=== PATIENT | female | born 1960 | race Caucasian/White ===

== ENCOUNTER → 2016-12-18 | Outpatient (CLI) | payer BC ==
[~2016-12-18] MED LIST: BACT800T5 PO; IBUP40TA PO; LEVO750T PO; NEUR100C PO; OMEP20CA3 PO; ULTRAVATE TOP; VALT1TAB PO; ZOLO100T PO; ZOVI5CRE5 TOP
[2016-12-18 13:01] LABS: ALBUMIN 4.2 GM/DL (3.2-5.2); ALBUMIN/GLOBULIN RATIO 1.17 (1.00-1.93); ALKALINE PHOSPHATASE 149 U/L (45-117); ALT/SGPT 30 U/L (12-78); ANION GAP 7 MEQ/L (8-16); AST/SGOT 19 U/L (15-37); BILIRUBIN,TOTAL 0.3 MG/DL (0.2-1.0); BLOOD UREA NITROGEN 20 MG/DL (7-18); CALCIUM LEVEL 9.5 MG/DL (8.5-10.1); CARBON DIOXIDE LEVEL 28 MEQ/L (21-32); CHLORIDE LEVEL 101 MEQ/L (98-107); GLOMERULAR FILTRATION RATE > 60.0 (>51); GLUCOSE, FASTING 189 MG/DL (70-105); POTASSIUM SERUM 4.4 MEQ/L (3.5-5.1); SODIUM LEVEL 136 MEQ/L (136-145); TOTAL PROTEIN 7.8 GM/DL (6.4-8.2)
[2016-12-19 14:35] LABS: THYROID PEROXIDASE ANTIBODY < 28.0 U/ML (<60.0)
== END ==
LOC: M WUC 09:41
PROVIDERS: ATTEND Family Medicine
DX: E11.9 Type 2 diabetes mellitus without complications (principal); L50.9 Urticaria, unspecified

== ENCOUNTER → 2016-12-25 | Outpatient (REF) | payer BC ==
[~2016-12-25] MED LIST changes: +CETI10TA; +NITR100C2; +ONDA1TAB15; +PHEN200T14; +RANI150T
== END ==
LOC: M LAB REF 16:27
PROVIDERS: ATTEND Physician Assistant
DX: R10.30 Lower abdominal pain, unspecified (principal)

== ENCOUNTER 2016-12-28 12:40 | Emergency (ER) | payer BC ==
[~2016-12-28] VITALS: Ht 167.6 cm; Wt 103.0 kg
[~2016-12-28 12:40] MED LIST changes: -CETI10TA; -NITR100C2; -ONDA1TAB15; -PHEN200T14; -RANI150T
[2016-12-28] MEDS ORDERED: CETI10TA (12:51)
[2016-12-28] MEDS ORDERED: NITR100C2 (12:51)
[2016-12-28] MEDS ORDERED: PHEN200T14 (12:51)
[2016-12-28] MEDS ORDERED: RANI150T (12:51)
[2016-12-28] MEDS ORDERED: ONDA1TAB15 (12:51)
[2016-12-28 13:37] LABS: MICROSCOPIC INDICATED? MAN YES (NO)
[2016-12-28 13:41] LABS: WBC, URINE 0-1 /hpf (0-3)
[2016-12-28 13:42] LABS: RBC, URINE 0-1 /hpf (0-3)
[2016-12-28 13:43] LABS: SQUAMOUS EPITHELIAL CELL URINE MOD AMOUNT /hpf (SMALL AMT)
[2016-12-28 13:44] LABS: BACTERIA, URINE NONE SEEN; HYALINE CAST, URINE NONE SEEN /lpf (0-1); MICROSCOPIC EXAM PERFORMED
[2016-12-28 14:06] LABS: MEAN CORPUSCULAR HEMOGLOBIN 20.6 pg (27.0-33.0); MEAN CORPUSCULAR HGB CONC 29.6 g/dl (32.0-36.5); MEAN CORPUSCULAR VOLUME 69.5 fl (80.0-96.0); RED CELL DISTRIBUTION WIDTH 16.4 % (11.5-14.5); WHITE BLOOD COUNT 10.9 K/mm3 (4.0-10.0)
[2016-12-28 14:29] LABS: ALBUMIN/GLOBULIN RATIO 0.86 (1.00-1.93); BILIRUBIN,DIRECT 0.3 MG/DL (0.0-0.2); BILIRUBIN,TOTAL 0.8 MG/DL (0.2-1.0); CALCIUM LEVEL 8.4 MG/DL (8.5-10.1); CREATININE FOR GFR 1.04 MG/DL (0.55-1.02); GLOMERULAR FILTRATION RATE 57.9 (>51); POTASSIUM SERUM 4.2 MEQ/L (3.5-5.1); TOTAL PROTEIN 6.5 GM/DL (6.4-8.2)
[2016-12-28] MEDS ORDERED: ACETAMINOPHEN 325 MG TAB PO ONE (14:45)
[2016-12-28 15:23] VITALS: BP 117/60
== END 2016-12-28 15:24 | disposition home or self-care (01) ==
LOC: M ED 14:13
DX: B34.9 Viral infection, unspecified (principal)

== ENCOUNTER → 2017-01-11 | Outpatient (CLI) | payer BC ==
[~2017-01-11] MED LIST changes: +CETI10TA; +NITR100C2; +ONDA1TAB15; +PHEN200T14; +RANI150T
[2017-01-11 13:49] LABS: FOLATE 4.7 NG/ML
[2017-01-11 14:27] LABS: PERCENT SATURATION 4.1 % (13.2-37.4)
== END ==
LOC: M WUC 10:04
PROVIDERS: ATTEND Family Medicine
DX: D64.9 Anemia, unspecified (principal); Z98.84 Bariatric surgery status; R94.5 Abnormal results of liver function studies

== ENCOUNTER → 2017-01-18 | Outpatient (CLI) | payer BC ==
--- NOTE | 2017-01-19 08:16 | REP ---
ABDOMINAL ULTRASOUND, LIMITED: HISTORY: Followup abnormal lesion seen on CT of 07/25/2015. No pertinent prior ultrasounds for comparison. The last ultrasound was done in 2001. The patient is status post cholecystectomy. There is a 3.7 x 2.2 x 1.8 cm size septated predominantly cystic mass lesion seen in the posterior segment of the right lobe of the liver. The cystic component previously measured 2 x 1.[address] back 07/25/2015. There is no intrahepatic or extrahepatic ductal dilatation, the common bile duct measures approximately 4 mm. The imaged portion of the pancreas and right kidney are unremarkable. IMPRESSION: Once again, there is a cystic lesion seen in the liver. It is difficult to compare this ultrasound to the CT. Contrast enhanced CT is recommended for complete evaluation so same modalities can be compared if clinically relevant.
== END ==
LOC: M WHC 13:59
PROVIDERS: ATTEND Family Medicine
DX: K74.60 Unspecified cirrhosis of liver (principal); Q44.6 Cystic disease of liver

== ENCOUNTER → 2017-03-04 | Outpatient (CLI) | payer BC ==
[2017-03-04 14:45] LABS: BASO % 0.4 % (0.0-1.0); EOS # 0.1 K/mm3 (0.0-0.50); LARGE UNSTAINED CELL # 0.1 K/mm3 (0.0-0.4); LYMPH # 0.7 K/mm3 (1.5-4.5); LYMPH % 9.3 % (24.0-44.0); MEAN CORPUSCULAR HEMOGLOBIN 23.8 pg (27.0-33.0); MEAN CORPUSCULAR HGB CONC 31.9 g/dl (32.0-36.5); MEAN CORPUSCULAR VOLUME 74.6 fl (80.0-96.0); MONO # 0.6 K/mm3 (0.0-0.8); MONO % 9.5 % (0.0-5.0); NEUTROPHILS # 4.6 K/mm3 (1.8-7.7); NEUTROPHILS % 77.9 % (36.0-66.0); PLATELET COUNT, AUTOMATED 205 k/mm3 (150-450); WHITE BLOOD COUNT 5.9 K/mm3 (4.0-10.0)
[2017-03-04 18:02] LABS: ALT/SGPT 33 U/L (12-78); AMYLASE 31 U/L (25-115); BILIRUBIN,TOTAL 0.5 MG/DL (0.2-1.0); CALCIUM LEVEL 8.7 MG/DL (8.5-10.1); CHLORIDE LEVEL 101 MEQ/L (98-107)
[2017-03-04 18:30] LABS: ALBUMIN 3.7 GM/DL (3.2-5.2); ALBUMIN/GLOBULIN RATIO 1.09 (1.00-1.93); ALKALINE PHOSPHATASE 229 U/L (45-117); ANION GAP 8 MEQ/L (8-16); AST/SGOT 24 U/L (15-37); BLOOD UREA NITROGEN 16 MG/DL (7-18); CARBON DIOXIDE LEVEL 24 MEQ/L (21-32); CREATININE FOR GFR 0.79 MG/DL (0.55-1.02); GLOMERULAR FILTRATION RATE > 60.0 (>51); GLUCOSE, FASTING 107 MG/DL (70-105); POTASSIUM SERUM 4.4 MEQ/L (3.5-5.1); SODIUM LEVEL 133 MEQ/L (136-145); TOTAL PROTEIN 7.1 GM/DL (6.4-8.2)
[2017-03-05 09:06] LABS: CONTROL LINE MONO INT CTR LINE PRESENT
== END ==
LOC: M WUC 13:02
PROVIDERS: ATTEND Physician Assistant
DX: R50.9 Fever, unspecified (principal)

== ENCOUNTER → 2017-05-07 | Outpatient (CLI) | payer BC ==
[~2017-05-07] MED LIST changes: -ONDA1TAB15; +ONDA4TAB5; +PHEN-501; -PHEN200T14
[2017-05-07 12:59] LABS: ALBUMIN/GLOBULIN RATIO 1.18 (1.00-1.93); ALKALINE PHOSPHATASE 118 U/L (45-117); ALT/SGPT 24 U/L (12-78); ANION GAP 7 MEQ/L (8-16); AST/SGOT 19 U/L (15-37); BASO # 0.1 K/mm3 (0.0-0.2); BASO % 1.5 % (0.0-1.0); BILIRUBIN,TOTAL 0.3 MG/DL (0.2-1.0); BLOOD UREA NITROGEN 19 MG/DL (7-18); CALCIUM LEVEL 9.5 MG/DL (8.5-10.1); CARBON DIOXIDE LEVEL 29 MEQ/L (21-32); CHLORIDE LEVEL 106 MEQ/L (98-107); CHOLESTEROL LEVEL 229 MG/DL (<200); CREATININE FOR GFR 0.78 MG/DL (0.55-1.02); EOS # 0.2 K/mm3 (0.0-0.50); EOS % 4.5 % (0.0-3.0); FERRITIN 14 NG/ML (8-252); GLOMERULAR FILTRATION RATE > 60.0 (>51); GLUCOSE, FASTING 103 MG/DL (70-105); LARGE UNSTAINED CELL # 0.1 K/mm3 (0.0-0.4); LARGE UNSTAINED CELL % 1.9 % (0.0-4.0); LYMPH # 1.6 K/mm3 (1.5-4.5); MEAN CORPUSCULAR HEMOGLOBIN 25.4 pg (27.0-33.0); MEAN CORPUSCULAR HGB CONC 31.6 g/dl (32.0-36.5); MEAN CORPUSCULAR VOLUME 80.3 fl (80.0-96.0); MONO # 0.4 K/mm3 (0.0-0.8); NEUTROPHILS # 3.1 K/mm3 (1.8-7.7); NEUTROPHILS % 57.2 % (36.0-66.0); PLATELET COUNT, AUTOMATED 235 k/mm3 (150-450); RED CELL DISTRIBUTION WIDTH 17.4 % (11.5-14.5); SODIUM LEVEL 142 MEQ/L (136-145); TOTAL PROTEIN 7.4 GM/DL (6.4-8.2); TRIGLYCERIDES LEVEL 131 MG/DL (<150); WHITE BLOOD COUNT 5.4 K/mm3 (4.0-10.0)
[2017-05-07 15:15] LABS: VITAMIN B12 LEVEL 251 PG/ML (247-911)
== END ==
LOC: M WUC 09:33
PROVIDERS: ATTEND Family Medicine
DX: E11.65 Type 2 diabetes mellitus with hyperglycemia (principal); D50.9 Iron deficiency anemia, unspecified; E53.9 Vitamin B deficiency, unspecified

== ENCOUNTER → 2017-05-23 | Outpatient (CLI) | payer BC ==
[2017-05-23 13:30] LABS: ALBUMIN/GLOBULIN RATIO 1.21 (1.00-1.93); ALKALINE PHOSPHATASE 120 U/L (45-117); ALT/SGPT 26 U/L (12-78); ANION GAP 8 MEQ/L (8-16); AST/SGOT 20 U/L (15-37); BILIRUBIN,TOTAL 0.3 MG/DL (0.2-1.0); BLOOD UREA NITROGEN 16 MG/DL (7-18); CALCIUM LEVEL 8.9 MG/DL (8.5-10.1); CARBON DIOXIDE LEVEL 27 MEQ/L (21-32); CHLORIDE LEVEL 108 MEQ/L (98-107); CREATININE FOR GFR 0.75 MG/DL (0.55-1.02); GLOMERULAR FILTRATION RATE > 60.0 (>51); GLUCOSE, FASTING 90 MG/DL (70-105); POTASSIUM SERUM 4.7 MEQ/L (3.5-5.1); SODIUM LEVEL 143 MEQ/L (136-145); TOTAL PROTEIN 7.3 GM/DL (6.4-8.2)
[2017-05-24 10:08] LABS: CARCINOEMBRYONIC ANTIGEN 0.5 NG/ML (<2.5)
== END ==
LOC: M WUC 09:51
PROVIDERS: ATTEND Family Medicine
DX: R94.5 Abnormal results of liver function studies (principal)

== ENCOUNTER → 2017-06-04 | Outpatient (CLI) | payer BC ==
[~2017-06-04] MED LIST changes: +ISOVUE-370 76% 100ML VIAL (Q9967) As Ordered ONE
--- NOTE | 2017-06-04 09:13 | REP ---
CT abdomen and pelvis without and with IV contrast: Without oral contrast. History: Abnormal liver function studies. 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 The gallbladder and appendix are surgically absent as well by history. CT contrast dose: 100 ml of intravenous Isovue 370. Comparison CT studies are reviewed, dated December 30, 2016 and July 25, 2015. Technique: Precontrast and dual-phase postcontrast imaging is acquired. CT findings: Preliminary digital cardiology coordinator radiograph demonstrates a unremarkable bowel gas pattern. The lung bases are clear. There is a sliding type hiatal hernia noted. The patient is status post gastric bypass surgery with associated anastomotic suture lines in the left mid abdomen and at the gastroesophageal junction. No adrenal lesion is seen. The pancreas remains unremarkable. The gallbladder is surgically absent. No biliary ductal dilation is observed. Kidneys are unremarkable. Some postoperative irregularity is seen in the posterior surface of the right lobe of the liver. In this region, we again see a 2.3 x 2.6 x 1.9 cm low density area consistent with a cystic liver lesion. This does not appear to have changed in the interval since the July 25, 2015 study. There is a calcification along the periphery of this cyst and a bile duct is seen coursing through the liver to the cyst as before. No new liver lesion or cyst is seen. Spleen is unremarkable. No retroperitoneal mass or adenopathy is seen. Small and large intestinal bowel loops are unremarkable. The urinary bladder appears intact although it is empty at the time of scanning. No bony destructive lesion is seen. The delayed acquisition scans extend up a little higher than the remainder the study and on the uppermost cut of this acquisition is a 3.5 cm nodular density in the right breast. I see that the patient's last mammogram in the electronic x-ray jacket is from 2014. Diagnostic bilateral mammography is recommended. Impression: 1. Stable 2.6 cm low density cystic area again seen at the previous partial hepatectomy resection site. This has not changed in the interval since the 2014 prior study. 2. Incidental finding of a nodular density in the right breast on the uppermost cut in the CT acquisition. Recommend diagnostic bilateral mammography. 3. Postoperative changes in the abdomen and pelvis as before with a small hiatal hernia again noted. Signed by Jus Roman MD 06/04/2017 03:48 P
== END ==
LOC: M RAD 07:47
PROVIDERS: ATTEND Family Medicine
DX: D37.6 Neoplasm of uncertain behavior of liver, gallbladder and bile ducts (principal); R94.5 Abnormal results of liver function studies
CPT/HCPCS: 74178; Q9967

== ENCOUNTER → 2017-12-06 | Outpatient (REF) | payer BC | LOC: M LAB REF 11:56 | DX: R30.0 Dysuria (principal) | CPT/HCPCS: 87086 ==

== ENCOUNTER → 2017-12-09 | Outpatient (CLI) | payer BC ==
[2017-12-09 17:45] LABS: ALBUMIN 3.1 GM/DL (3.2-5.2); ALBUMIN/GLOBULIN RATIO 0.78 (1.00-1.93); ALKALINE PHOSPHATASE 397 U/L (45-117); ALT/SGPT 25 U/L (12-78); ANION GAP 8 MEQ/L (8-16); AST/SGOT 19 U/L (7-37); BILIRUBIN,TOTAL 0.4 MG/DL (0.2-1.0); BLOOD UREA NITROGEN 11 MG/DL (7-18); CALCIUM LEVEL 9.6 MG/DL (8.5-10.1); CARBON DIOXIDE LEVEL 25 MEQ/L (21-32); CHLORIDE LEVEL 103 MEQ/L (98-107); CREATININE FOR GFR 0.79 MG/DL (0.55-1.30); GLOMERULAR FILTRATION RATE > 60.0 (>51); GLUCOSE, FASTING 289 MG/DL (70-100); SODIUM LEVEL 136 MEQ/L (136-145); TOTAL PROTEIN 7.1 GM/DL (6.4-8.2)
[2017-12-09 17:52] LABS: BASO % 0.5 % (0.0-1.0); EOS # 0.1 10^3/uL (0.0-0.50); EOS % 1.6 % (0.0-3.0); HEMATOCRIT 40.2 % (36.0-47.0); HEMOGLOBIN 12.5 g/dl (12.0-16.0); LYMPH # 1.2 10^3/uL (1.5-4.5); MEAN CORPUSCULAR HGB CONC 31.1 g/dl (32.0-36.5); MEAN CORPUSCULAR VOLUME 89.9 fl (80.0-96.0); MONO # 0.4 10^3/uL (0.0-0.8); MONO % 4.6 % (0.0-5.0); NEUTROPHILS # 6.5 10^3/uL (1.8-7.7); NEUTROPHILS % 78.3 % (36.0-66.0); PLATELET COUNT, AUTOMATED 663 10^3/uL (150-450); RED BLOOD COUNT 4.47 10^6/uL (4.00-5.40); RED CELL DISTRIBUTION WIDTH 13.6 % (11.5-14.5); WHITE BLOOD COUNT 8.3 10^3/uL (4.0-10.0)
[2017-12-09 18:12] LABS: CONTROL LINE MONO INT CTR LINE PRESENT; MONO SCRN NEGATIVE (NEGATIVE)
== END ==
LOC: M WUC 13:28
DX: R10.11 Right upper quadrant pain (principal)
CPT/HCPCS: 80053

== ENCOUNTER → 2017-12-09 | Outpatient (CLI) | payer BC | LOC: M WHC 11:05 | DX: R10.11 Right upper quadrant pain (principal) | CPT/HCPCS: 76705 ==

== ENCOUNTER → 2017-12-09 | Outpatient (REF) | payer BC | LOC: M LAB REF 13:24 | DX: N39.0 Urinary tract infection, site not specified (principal) | CPT/HCPCS: 87086 ==

== ENCOUNTER → 2018-05-27 | Outpatient (CLI) | payer BC | LOC: M WHC 09:02 | DX: Z12.31 Encounter for screening mammogram for malignant neoplasm of breast (principal); Z78.0 Asymptomatic menopausal state; Z92.89 Personal history of other medical treatment | CPT/HCPCS: 77067 ==

== ENCOUNTER → 2018-07-09 | Outpatient (REF) | payer BC | LOC: M LAB REF 13:13 | DX: R30.0 Dysuria (principal) ==

== ENCOUNTER → 2018-11-15 | Outpatient (CLI) | payer BC ==
[~2018-11-15] MED LIST changes: -ISOVUE-370 76% 100ML VIAL (Q9967) As Ordered ONE
[2018-11-15 18:10] LABS: BASO # 0.1 10^3/uL (0.0-0.2); BASO % 1.7 % (0.0-1.0); EOS # 0.3 10^3/uL (0.0-0.50); EOS % 5.4 % (0.0-3.0); HEMATOCRIT 45.7 % (36.0-47.0); HEMOGLOBIN 14.7 g/dl (12.0-15.5); LYMPH # 1.4 10^3/uL (1.5-4.5); LYMPH % 26.8 % (24.0-44.0); MEAN CORPUSCULAR HEMOGLOBIN 28.3 pg (27.0-33.0); MEAN CORPUSCULAR HGB CONC 32.2 g/dl (32.0-36.5); MEAN CORPUSCULAR VOLUME 87.9 fl (80.0-96.0); MONO # 0.4 10^3/uL (0.0-0.8); MONO % 6.8 % (0.0-5.0); NEUTROPHILS # 3.1 10^3/uL (1.8-7.7); NEUTROPHILS % 58.9 % (36.0-66.0); PLATELET COUNT, AUTOMATED 242 10^3/uL (150-450); WHITE BLOOD COUNT 5.2 10^3/uL (4.0-10.0)
[2018-11-15 18:13] LABS: ALBUMIN 3.8 GM/DL (3.2-5.2); ALT/SGPT 22 U/L (12-78); BILIRUBIN,TOTAL 0.5 MG/DL (0.2-1.0); BLOOD UREA NITROGEN 13 MG/DL (7-18); CALCIUM LEVEL 8.4 MG/DL (8.8-10.2); CARBON DIOXIDE LEVEL 28 MEQ/L (21-32); CHLORIDE LEVEL 105 MEQ/L (98-107); CHOLESTEROL LEVEL 248 MG/DL (<200); CHOLESTEROL RISK RATIO 5.636 (<5); FERRITIN 36 NG/ML (8-252); GLOMERULAR FILTRATION RATE > 60.0 (>45); GLUCOSE, FASTING 113 MG/DL (70-100); HDL CHOLESTEROL 44 MG/DL (>40); IRON (FE) 97 UG/DL (50-170); LDL CHOLESTEROL 172 MG/DL (<100); NON-HDL-C 204 MG/DL; PERCENT SATURATION 27.2 % (13.2-45.0); POTASSIUM SERUM 4.4 MEQ/L (3.5-5.1); SODIUM LEVEL 140 MEQ/L (136-145); TOTAL IRON BINDING CAPACITY 356 UG/DL (250-450); TOTAL PROTEIN 7.2 GM/DL (6.4-8.2); TRIGLYCERIDES LEVEL 161 MG/DL (<150)
[2018-11-15 18:35] LABS: MALB URINE SIEMENS 8.3 MG/L; MAU/CREAT RATIO 6.7 MCG/MG (0.0-30.0)
[2018-11-15 18:37] LABS: HEMOGLOBIN A1c 6.4 %
[2018-11-17 10:51] LABS: VITAMIN B12 LEVEL 272 PG/ML (247-911)
== END ==
LOC: M WUC 11:38
PROVIDERS: ATTEND Family Medicine
DX: E11.65 Type 2 diabetes mellitus with hyperglycemia (principal); D50.9 Iron deficiency anemia, unspecified; E53.9 Vitamin B deficiency, unspecified

== ENCOUNTER 2018-12-25 08:31 | Day surgery (SDC) | payer BC ==
[~2018-12-25] VITALS: Ht 170.2 cm; Wt 110.2 kg
[~2018-12-25 08:31] MED LIST changes: +ASPI81TA26 PO; -CETI10TA; +CETI10TA PO; +FERR325T3 PO; +HYDR-3363 PO; +IBUP-1114 PO; -IBUP40TA PO; +LIDOCAINE 2% INJ 100 MG/5 ML SDV (FOR ANES.) As Ordered ONE; +METF10004 PO; +NS 1,000 ML IV ONE; +PROPOFOL 200 MG/20 ML VIAL As Ordered ONE; +RANI150T PO; +VITA100067 PO
--- NOTE | 2018-12-25 09:39 | ROOR ---
Patient Name: Christin Mondragon Procedure Date: 12/25/2018 9:05 AM Date of : 1960 Age: 58 Room: [facility] Gender: Female Note Status: Finalized Procedure: Upper GI endoscopy Indications: Suspected esophageal reflux Providers: Domenic Lee Jr, MD Referring MD: Kasey BURKETT DO Requesting Provider: Medicines: Propofol per Anesthesia Complications: No immediate complications. Procedure: Pre-Anesthesia Assessment: - Prior to the procedure, a History and Physical was performed, and patient medications and allergies were reviewed. The patient is competent. The risks and benefits of the procedure and the sedation options and risks were discussed with the patient. All questions were answered and informed consent was obtained. Patient identification and proposed procedure were verified by the physician and the nurse in the pre-procedure area and in the procedure room. Mental Status Examination: alert and oriented. Airway Examination: normal oropharyngeal airway and neck mobility. Respiratory Examination: clear to auscultation. CV Examination: normal. ASA Grade Assessment: II - A patient with mild systemic disease. After reviewing the risks and benefits, the patient was deemed in satisfactory condition to undergo the procedure. The anesthesia plan was to use moderate sedation / analgesia (conscious sedation). Immediately prior to administration of medications, the patient was re-assessed for adequacy to receive sedatives. The heart rate, respiratory rate, oxygen saturations, blood pressure, adequacy of pulmonary ventilation, and response to care were monitored throughout the procedure. The physical status of the patient was re-assessed after the procedure. The Endoscope was introduced through the mouth, and advanced to the afferent jejunal loop. The upper GI endoscopy was accomplished without difficulty. The patient tolerated the procedure well. Findings: A small hiatal hernia was present. Evidence of a gastric bypass was found. A gastric pouch with a normal size was found. The gastrojejunal anastomosis was characterized by erythema. Biopsies were taken with a cold forceps for histology. The examined jejunum was normal. Impression: - Small hiatal hernia. - Gastric bypass with a normal-sized pouch. Gastrojejunal anastomosis characterized by erythema. Biopsied. - Normal examined jejunum. BUT THE BLIND LOOP WAS VERY LONG (CANDY CANE) Recommendation: - Discharge patient to home (ambulatory). - Return to Bariatric clinic at appointment to be scheduled. Domenic Lee MD Domenic Lee Jr, MD 12/25/2018 9:39:46 AM Electronically signed by Domenic Lee Jr, MD Number of Addenda: 0 Note Initiated On: 12/25/2018 9:05 AM Estimated Blood Loss: Estimated blood loss was minimal.
--- NOTE | 2018-12-25 09:42 | ROOR ---
Patient Name: Christin Mondragon Procedure Date: 12/25/2018 9:06 AM Date of : 1960 Age: 58 Room: [facility] Gender: Female Note Status: Finalized Procedure: Colonoscopy Indications: High risk colon cancer surveillance: Personal history of colonic polyps Providers: Domenic Lee Jr, MD Referring MD: Kasey BURKETT DO Requesting Provider: Medicines: Propofol per Anesthesia Complications: No immediate complications. Procedure: Pre-Anesthesia Assessment: - Prior to the procedure, a History and Physical was performed, and patient medications and allergies were reviewed. The patient is competent. The risks and benefits of the procedure and the sedation options and risks were discussed with the patient. All questions were answered and informed consent was obtained. Patient identification and proposed procedure were verified by the physician and the nurse in the pre-procedure area and in the procedure room. Mental Status Examination: alert and oriented. Airway Examination: normal oropharyngeal airway and neck mobility. Respiratory Examination: clear to auscultation. CV Examination: normal. ASA Grade Assessment: II - A patient with mild systemic disease. After reviewing the risks and benefits, the patient was deemed in satisfactory condition to undergo the procedure. The anesthesia plan was to use moderate sedation / analgesia (conscious sedation). Immediately prior to administration of medications, the patient was re-assessed for adequacy to receive sedatives. The heart rate, respiratory rate, oxygen saturations, blood pressure, adequacy of pulmonary ventilation, and response to care were monitored throughout the procedure. The physical status of the patient was re-assessed after the procedure. The Colonoscope was introduced through the anus and advanced to the cecum, identified by appendiceal orifice and ileocecal valve. The colonoscopy was performed without difficulty. The patient tolerated the procedure well. The quality of the bowel preparation was adequate. Findings: The sigmoid colon, descending colon, transverse colon, ascending colon, cecum, appendiceal orifice and ileocecal valve appeared normal. A diminutive polyp was found in the recto-sigmoid colon. The polyp was removed with a hot snare. Resection and retrieval were complete. A small polyp was found in the rectum. The polyp was pedunculated. The polyp was removed with a hot snare. Resection and retrieval were complete. Impression: - The sigmoid colon, descending colon, transverse colon, ascending colon, cecum, appendiceal orifice and ileocecal valve are normal. - One diminutive polyp at the recto-sigmoid colon, removed with a hot snare. Resected and retrieved. - One small polyp in the rectum, removed with a hot snare. Resected and retrieved. Recommendation: - Discharge patient to home (ambulatory). - Repeat colonoscopy in 5 years for surveillance. Domenic Lee MD Domenic Lee Jr, MD 12/25/2018 9:41:57 AM Electronically signed by Domenic Lee Jr, MD Number of Addenda: 0 Note Initiated On: 12/25/2018 9:06 AM Estimated Blood Loss: Estimated blood loss: none.
[2018-12-25 10:09] VITALS: BP 123/69
== END 2018-12-25 10:10 | disposition home or self-care (01) ==
LOC: M OPP 08:31
PROVIDERS: ATTEND Surgery
DX: D12.7 Benign neoplasm of rectosigmoid junction (principal); K62.1 Rectal polyp; K44.9 Diaphragmatic hernia without obstruction or gangrene; Z86.010 Personal history of colon polyps; Z98.84 Bariatric surgery status

== ENCOUNTER → 2019-04-05 | Outpatient (REF) | payer BC ==
[~2019-04-05] MED LIST changes: -LIDOCAINE 2% INJ 100 MG/5 ML SDV (FOR ANES.) As Ordered ONE; -NS 1,000 ML IV ONE; +OMEP20CA4 PO; -PROPOFOL 200 MG/20 ML VIAL As Ordered ONE
== END ==
LOC: M LAB REF 09:59
PROVIDERS: ATTEND Physician Assistant
DX: N39.0 Urinary tract infection, site not specified (principal)

== ENCOUNTER → 2019-06-05 | Outpatient (REF) | payer BC | LOC: M LAB REF 16:58 | PROVIDERS: ATTEND Physician Assistant | DX: R30.0 Dysuria (principal) ==

== ENCOUNTER → 2019-11-23 | Outpatient (CLI) | payer BC ==
[~2019-11-23] MED LIST changes: +OMEP1CAP73 PO; -OMEP20CA4 PO; +ONDA-83; -ONDA4TAB5
[2019-11-23 11:37] LABS: BASO # 0.1 10^3/uL (0.0-0.2); BASO % 1.8 % (0.0-1.0); EOS # 0.3 10^3/uL (0.0-0.5); EOS % 5.7 % (0.0-3.0); HEMATOCRIT 45.2 % (36.0-47.0); HEMOGLOBIN 14.5 g/dl (12.0-15.5); LYMPH # 1.5 10^3/uL (1.5-5.0); LYMPH % 30.9 % (24.0-44.0); MEAN CORPUSCULAR HEMOGLOBIN 28.4 pg (27.0-33.0); MEAN CORPUSCULAR HGB CONC 32.1 g/dl (32.0-36.5); MEAN CORPUSCULAR VOLUME 88.6 fl (80.0-96.0); MONO # 0.4 10^3/uL (0.0-0.8); MONO % 8.4 % (0.0-5.0); NEUTROPHILS # 2.6 10^3/uL (1.5-8.5); PLATELET COUNT, AUTOMATED 235 10^3/uL (150-450); WHITE BLOOD COUNT 4.9 10^3/uL (4.0-10.0)
[2019-11-23 11:40] LABS: ALBUMIN 4.1 GM/DL (3.2-5.2); ALT/SGPT 28 U/L (12-78); BILIRUBIN,TOTAL 0.4 MG/DL (0.2-1.0); BLOOD UREA NITROGEN 12 MG/DL (7-18); CALCIUM LEVEL 9.4 MG/DL (8.8-10.2); CARBON DIOXIDE LEVEL 28 MEQ/L (21-32); CHLORIDE LEVEL 109 MEQ/L (98-107); CHOLESTEROL LEVEL 241 MG/DL (<200); CHOLESTEROL RISK RATIO 5.477 (<5); CREATININE FOR GFR 0.83 MG/DL (0.55-1.30); FERRITIN 29 NG/ML (8-252); GLOMERULAR FILTRATION RATE > 60.0 (>45); GLUCOSE, FASTING 128 MG/DL (70-100); HDL CHOLESTEROL 44 MG/DL (>40); IRON (FE) 117 UG/DL (50-170); LDL CHOLESTEROL 161 MG/DL (<100); NON-HDL-C 197 MG/DL; PERCENT SATURATION 29.7 % (13.2-45.0); POTASSIUM SERUM 4.5 MEQ/L (3.5-5.1); SODIUM LEVEL 141 MEQ/L (136-145); TOTAL IRON BINDING CAPACITY 394 UG/DL (250-450); TOTAL PROTEIN 7.2 GM/DL (6.4-8.2); TRIGLYCERIDES LEVEL 181 MG/DL (<150)
[2019-11-23 11:45] LABS: VITAMIN B12 LEVEL 408 PG/ML (247-911)
[2019-11-23 12:17] LABS: MALB URINE SIEMENS 8.5 MG/L; MAU/CREAT RATIO 4.8 MCG/MG (0.0-30.0)
[2019-11-23 12:36] LABS: HEMOGLOBIN A1c 6.4 %
== END ==
LOC: M WUC 09:18
PROVIDERS: ATTEND Family Medicine
DX: E11.65 Type 2 diabetes mellitus with hyperglycemia (principal); D50.9 Iron deficiency anemia, unspecified; E53.9 Vitamin B deficiency, unspecified; E78.2 Mixed hyperlipidemia

== ENCOUNTER → 2019-11-24 | Outpatient (CLI) | payer BC ==
--- NOTE | 2019-11-25 08:14 | REP ---
Clinical: Pelvic pain. Technique: Real time cuevas scale ultrasound examination using curved array transducer. Findings: Bladder is normal in appearance and without wall thickening or mass lesion. Bilateral ureteral jets are identified. Prevoid bladder measures 8.9 x 7.1 x 6.5 cm (217 ml). Postvoid bladder is completely empty. Impression: Normal bladder ultrasound. Electronically Signed by Cirilo Angel MD 11/25/2019 08:06 A
== END ==
LOC: M RAD 13:07
PROVIDERS: ATTEND Family Medicine
DX: R10.2 Pelvic and perineal pain (principal)

== ENCOUNTER → 2019-12-28 | Outpatient (CLI) | payer BC | LOC: M LABSMTC 09:50 | PROVIDERS: ATTEND Family Medicine | DX: Z11.59 Encounter for screening for other viral diseases (principal); Z20.828 Contact with and (suspected) exposure to other viral communicable diseases ==

== ENCOUNTER 2019-12-31 14:35 | Emergency (ER) | payer BC ==
[~2019-12-31] VITALS: Ht 170.2 cm; Wt 101.8 kg
[~2019-12-31 14:35] MED LIST changes: -PANT40TA3 PO
[2019-12-31] MEDS ORDERED: NITR100C2 (14:46)
[2019-12-31] MEDS ORDERED: KETOROLAC 30 MG/ML 1ML VIAL (J1885 PER 15MG) IV ONE (15:45)
[2019-12-31] MEDS ORDERED: NS 1,000 ML IV ONE (15:45)
[2019-12-31] MEDS ORDERED: ONDANSETRON 4MG/2ML VIAL (J2405 PER 1MG) IV ONE (15:45)
[2019-12-31] MEDS ORDERED: ISOVUE-370 76% 100ML VIAL (Q9967) As Ordered ONE (15:52)
[2019-12-31 15:57] LABS: BASO % 0.4 % (0.0-1.0); EOS % 0.6 % (0.0-3.0); LYMPH # 0.4 10^3/uL (1.5-5.0); LYMPH % 8.5 % (24.0-44.0); MEAN CORPUSCULAR HEMOGLOBIN 28.6 pg (27.0-33.0); MEAN CORPUSCULAR HGB CONC 33.3 g/dl (32.0-36.5); MEAN CORPUSCULAR VOLUME 85.7 fl (80.0-96.0); MONO # 0.6 10^3/uL (0.0-0.8); MONO % 11.9 % (0.0-5.0); NEUTROPHILS # 3.9 10^3/uL (1.5-8.5); PLATELET COUNT, AUTOMATED 221 10^3/uL (150-450); RED BLOOD COUNT 4.55 10^6/uL (4.00-5.40); WHITE BLOOD COUNT 5.1 10^3/uL (4.0-10.0)
--- NOTE | 2019-12-31 16:26 | REP ---
CHEST, TWO VIEWS: There is no evidence of acute infiltrate. No pleural effusion is seen. The heart is normal in size. The mediastinal silhouette is unremarkable. The visualized osseous structures are intact. IMPRESSION: No acute pulmonary disease. Electronically Signed by Asael Crow MD 12/31/2019 04:27 P
[2019-12-31 16:34] LABS: ALBUMIN 2.9 GM/DL (3.2-5.2); ALT/SGPT 27 U/L (12-78); BILIRUBIN,DIRECT < 0.1 MG/DL (0.0-0.2); BILIRUBIN,TOTAL 0.9 MG/DL (0.2-1.0); LIPASE 183 U/L (73-393); TOTAL PROTEIN 7.2 GM/DL (6.4-8.2)
--- NOTE | 2019-12-31 16:57 | REP ---
CT ABDOMEN AND PELVIS WITH IV CONTRAST: TECHNIQUE: Axial contrast enhanced images from the lung bases to the pubic symphysis using 100 mL Isovue 370 intravenous contrast material with multiplanar reformations. COMPARISON: 06/04/2017 The visualized lung bases demonstrate minor interstitial fibrotic change. No acute infiltrate is seen. The liver is enlarged and heterogeneous. Complex cyst in the posterior aspect of the liver appears similar to the prior exam. A few calcifications are seen in the wall of the chest inferiorly. Otherwise no liver mass is seen. The patient has had a prior cholecystectomy. There is expected prominence of the biliary system, unchanged. There is splenomegaly, length of the spleen is 15.9 cm. Length of the liver is approximately 20 cm. Adrenal glands are normal. No pancreatic mass is seen. There is no hydronephrosis. There is no abdominal aortic aneurysm with mild atherosclerotic calcifications. There is no adenopathy. There is no free air or free fluid. There is no bowel wall thickening. The patient has had prior gastric surgery. A few sigmoid diverticula are present without acute diverticulitis. There appears to have been a prior hysterectomy. The urinary bladder is mildly distended and grossly unremarkable. Nonspecific mild portal edema is present. This may indicate an inflammatory process involving either the duodenum or biliary system. There is a small hiatal hernia. IMPRESSION: Hepatosplenomegaly. The liver is enlarged and heterogenous. The patient has had a prior cholecystectomy. There is expected prominence of the biliary system. There is portal edema which may indicate inflammatory change involving either the biliary system or duodenum. No bowel thickening or inflammation. No free air or free fluid. Electronically Signed by Asael Crow MD 01/01/2020 04:47 P
[2019-12-31 17:42] VITALS: BP 123/58
[2019-12-31] MEDS ORDERED: PANT40TA3 PO (17:47)
== END 2019-12-31 18:01 | disposition home or self-care (01) ==
LOC: M ED 14:35
DX: K29.80 Duodenitis without bleeding (principal); E11.9 Type 2 diabetes mellitus without complications; D64.9 Anemia, unspecified; G62.9 Polyneuropathy, unspecified; F41.9 Anxiety disorder, unspecified; K21.9 Gastro-esophageal reflux disease without esophagitis; Z79.899 Other long term (current) drug therapy; Z79.84 Long term (current) use of oral hypoglycemic drugs; Z79.82 Long term (current) use of aspirin; Z88.0 Allergy status to penicillin; Z88.8 Allergy status to other drugs, medicaments and biological substances
CPT/HCPCS: 71046; 74177; 80047; 80076; 81001; 83690; 85025; 96361; 96374; 96375; 99284; J1885; J2405; Q9967

== ENCOUNTER → 2019-12-31 | Outpatient (REF) | payer BC ==
[~2019-12-31] MED LIST changes: +PANT40TA3 PO
[2019-12-31 18:12] LABS: % LABILE ALKALINE PHOSPHATASE 57.6 %
== END ==
LOC: M LAB REF 17:23
PROVIDERS: ATTEND Family Medicine
DX: R74.8 Abnormal levels of other serum enzymes (principal)

== ENCOUNTER → 2019-12-31 | Outpatient (REF) | payer BC | LOC: M LAB REF 16:53 | PROVIDERS: ATTEND Family Medicine | DX: R50.9 Fever, unspecified (principal) ==

== ENCOUNTER → 2020-02-26 | Outpatient (CLI) | payer BC ==
[~2020-02-26] MED LIST changes: +PANT40TA3 PO
--- NOTE | 2020-02-26 10:11 | REPMRS ---
Patient History The patient states she had a clinical breast exam in February 2020.Family history of prostate cancer at age 48 in brother. Benign stereotactic core biopsy of the right breast, 1985. Benign excisional biopsy of the right breast, 1985. 3D TOMOSYNTHESIS WAS PERFORMED. [facility] for [facility] 6.8%. VOLPARA DENSITY B. Digital Woman Screen Mammo: February 26, 2020 - Exam #: [id number] Bilateral CC and MLO view(s) were taken. Technologist: Carli Goetz, Technologist Prior study comparison: May 27, 2018, bilateral digital woman screen mammo performed at [facility]. January 11, 2017, bilateral digital mammo screening bilat, performed at [facility]. FINDINGS: There are scattered fibroglandular densities. There has been no change in the appearance of the mammogram from the prior studies. There is a mild amount of residual fibroglandular tissue which is fairly symmetric. There is no interval development of dominant mass, architectural distortion, or clustered microcalcification suggestive of malignancy. Assessment: BI-RADS/ACR category 1 mammogram. Negative Mammogram. Recommendation Routine screening mammogram in 1 year (for women over age 40). This mammogram was interpreted with the aid of an FDA-approved computer-aided dectection system. Electronically Signed By: Asael Crow MD 02/26/20 1011
== END ==
LOC: M WHC 09:10
PROVIDERS: ATTEND Family Medicine
DX: Z12.31 Encounter for screening mammogram for malignant neoplasm of breast (principal); Z80.42 Family history of malignant neoplasm of prostate

== ENCOUNTER → 2020-03-10 | Outpatient (CLI) | payer BC ==
[2020-03-10 10:22] LABS: HEMOGLOBIN A1c 6.1 %
[2020-03-10 10:25] LABS: ALBUMIN 3.4 GM/DL (3.2-5.2); ALT/SGPT 14 U/L (12-78); BILIRUBIN,TOTAL 0.5 MG/DL (0.2-1.0); BLOOD UREA NITROGEN 7 MG/DL (7-18); CALCIUM LEVEL 9.2 MG/DL (8.8-10.2); CARBON DIOXIDE LEVEL 26 MEQ/L (21-32); CHLORIDE LEVEL 104 MEQ/L (98-107); CREATININE FOR GFR 0.75 MG/DL (0.55-1.30); GLOMERULAR FILTRATION RATE > 60.0 (>45); GLUCOSE, FASTING 100 MG/DL (70-100); POTASSIUM SERUM 4.2 MEQ/L (3.5-5.1); SODIUM LEVEL 139 MEQ/L (136-145); TOTAL PROTEIN 7.1 GM/DL (6.4-8.2)
[2020-03-10 10:34] LABS: MALB URINE SIEMENS 17.3 MG/L; MAU/CREAT RATIO 10.8 MCG/MG (0.0-30.0)
== END ==
LOC: M WUC 07:39
PROVIDERS: ATTEND Family Medicine
DX: E11.65 Type 2 diabetes mellitus with hyperglycemia (principal)

== ENCOUNTER → 2020-06-05 | Outpatient (REF) | payer BC ==
[~2020-06-05] MED LIST changes: +PANT40TA29 PO; -PANT40TA3 PO
[2020-06-05 15:20] LABS: BASO # 0.1 10^3/uL (0.0-0.2); BASO % 1.3 % (0.0-1.0); EOS # 0.2 10^3/uL (0.0-0.5); EOS % 4.2 % (0.0-3.0); HEMATOCRIT 41.4 % (36.0-47.0); HEMOGLOBIN 12.7 g/dl (12.0-15.5); LYMPH # 1.2 10^3/uL (1.5-5.0); LYMPH % 24.6 % (24.0-44.0); MEAN CORPUSCULAR HEMOGLOBIN 25.5 pg (27.0-33.0); MEAN CORPUSCULAR HGB CONC 30.7 g/dl (32.0-36.5); MONO # 0.3 10^3/uL (0.0-0.8); MONO % 7.2 % (0.0-5.0); NEUTROPHILS # 2.9 10^3/uL (1.5-8.5); NEUTROPHILS % 62.3 % (36.0-66.0); PLATELET COUNT, AUTOMATED 365 10^3/uL (150-450); RED BLOOD COUNT 4.99 10^6/uL (4.00-5.40); WHITE BLOOD COUNT 4.7 10^3/uL (4.0-10.0)
[2020-06-05 15:38] LABS: HEMOGLOBIN A1c 5.9 %
[2020-06-05 15:49] LABS: ALBUMIN 3.3 GM/DL (3.2-5.2); ALT/SGPT 27 U/L (12-78); BILIRUBIN,DIRECT 0.1 MG/DL (0.0-0.2); BILIRUBIN,TOTAL 0.4 MG/DL (0.2-1.0); BLOOD UREA NITROGEN 11 MG/DL (7-18); CARBON DIOXIDE LEVEL 29 MEQ/L (21-32); CHLORIDE LEVEL 107 MEQ/L (98-107); CREATININE FOR GFR 0.73 MG/DL (0.55-1.30); GLOMERULAR FILTRATION RATE > 60.0 (>45); GLUCOSE, FASTING 92 MG/DL (70-100); POTASSIUM SERUM 4.4 MEQ/L (3.5-5.1); SODIUM LEVEL 143 MEQ/L (136-145); TOTAL PROTEIN 7.2 GM/DL (6.4-8.2)
[2020-06-05 16:00] LABS: MAU/CREAT RATIO 5.5 MCG/MG (0.0-30.0)
== END ==
LOC: M LAB REF 07:45
PROVIDERS: ATTEND Family Medicine
DX: E11.65 Type 2 diabetes mellitus with hyperglycemia (principal); D50.9 Iron deficiency anemia, unspecified

== ENCOUNTER → 2020-06-17 | Outpatient (CLI) | payer BC ==
[~2020-06-17] MED LIST changes: +PROHANCE 279.3MG/ML 15ML VIAL As Ordered ONE; +PROHANCE 279.3MG/ML 5ML VIAL As Ordered ONE
--- NOTE | 2020-06-22 07:51 | REP ---
MAGNETIC RESONANCE CHOLANGIOPANCREATOGRAPHY HISTORY: Right upper quadrant pain, elevated LFTs. FINDINGS: MRCP is performed utilizing multiple heavily T2 weighted sequences in the axial and coronal planes, with MIP reconstruction images performed. The patient has had a prior cholecystectomy. There is expected mild dilatation of intrahepatic and extrahepatic bile ducts. Maximum diameter of the common bile duct is 1 cm. There is no evidence of choledocholithiasis. No biliary stricture is visualized. Pancreatic duct is normal in caliber. Liver is mildly enlarged measuring about 19 cm in length. There are findings most consistent with mild to moderate diffuse fatty infiltration. A cyst in the posterior segment of the right lobe of the liver contains thin internal septations and is unchanged since prior CT of 12/31/2019 and 06/04/2017. There is mild splenomegaly. No ascites is seen. IMPRESSION: Patient is status post cholecystectomy with expected mild diffuse intrahepatic and extrahepatic biliary dilatation. No evidence of choledocholithiasis or biliary stricture. Pancreatic duct normal in caliber. Stable cystic structure posterior segment right lobe of liver. Mild hepatosplenomegaly. MTDD
--- NOTE | 2020-06-22 07:52 | REP ---
MRI ABDOMEN WITH AND WITHOUT CONTRAST HISTORY: Cystadenoma of the liver. Right upper quadrant pain. Elevated liver function tests (LFTs). COMPARISON: CT 12/31/2019, as well as other prior exams. FINDINGS: There is a moderate size hiatal hernia. There is lymph node in the right cardiophrenic angle upper limits of normal in size 1 cm in short axis dimension. There is mild hepatomegaly. The length of the liver is approximately 19 cm. There are signal changes throughout the liver in a heterogeneous pattern, most consistent with [id number] diffuse fatty infiltration. Once again in the posterior segment of the right lobe peripherally at the level of the upper pole of the right kidney, there is a cystic structure with several thin internal septations. There is no internal nodular enhancement. The size is approximately 2.9 cm maximally. It has lobulated margins. It is not significantly changed when compared to the prior CT of 06/04/2017 and is only minimally increased in size since the CT 02/23/2009, at which time it measured about 2.3 cm in maximum diameter. No enhancing liver mass is seen. The spleen is mildly enlarged measuring approximately 14.3 cm in length. There is a subcentimeter cyst along the posterior margin of the spleen. Adrenal glands are normal. Pancreas demonstrates no mass or evidence of pancreatic duct dilatation. The patient has had a prior cholecystectomy. There is expected biliary prominence of both the intrahepatic and extrahepatic bile ducts, the maximum diameter of the common bile duct is approximately 9 mm. No renal mass is seen. There is no periaortic adenopathy. There are a few portal lymph nodes, which are upper limits of normal in size, short axis dimension approximately 1 cm. There is no ascites. IMPRESSION: Moderate hiatal hernia. Mild hepatosplenomegaly. There are findings compatible with [id number] diffuse fatty infiltration of the liver. A cystic structure in the posterior segment of the right lobe of the liver demonstrates thin internal septations with no suspicious enhancement and has remained stable since 06/04/2017, only minimally increased in size compared to 02/23/2009. A few portal lymph nodes are upper limits of normal in size. The patient has had a prior cholecystectomy with expected mild dilatation of the common bile duct. No ascites. MTDD
== END ==
LOC: M RAD 17:13
PROVIDERS: ATTEND Internal Medicine Gastroenterology
DX: D13.9 Benign neoplasm of ill-defined sites within the digestive system (principal); K44.9 Diaphragmatic hernia without obstruction or gangrene; K76.0 Fatty (change of) liver, not elsewhere classified; R16.2 Hepatomegaly with splenomegaly, not elsewhere classified; K76.89 Other specified diseases of liver; Z90.49 Acquired absence of other specified parts of digestive tract
CPT/HCPCS: 74181; 74183; A9576

== ENCOUNTER → 2021-03-08 | Outpatient (CLI) | payer BC ==
[~2021-03-08] MED LIST changes: -PROHANCE 279.3MG/ML 15ML VIAL As Ordered ONE; -PROHANCE 279.3MG/ML 5ML VIAL As Ordered ONE
[2021-03-08 12:05] LABS: BASO # 0.1 10^3/uL (0.0-0.2); BASO % 0.9 % (0.0-1.0); EOS # 0.1 10^3/uL (0.0-0.5); EOS % 1.5 % (0.0-3.0); HEMATOCRIT 42.3 % (36.0-47.0); HEMOGLOBIN 13.1 g/dl (12.0-15.5); LYMPH # 0.9 10^3/uL (1.5-5.0); LYMPH % 11.6 % (24.0-44.0); MEAN CORPUSCULAR HEMOGLOBIN 27.2 pg (27.0-33.0); MEAN CORPUSCULAR VOLUME 87.8 fl (80.0-96.0); MONO # 0.7 10^3/uL (0.0-0.8); MONO % 9.1 % (2.0-8.0); NEUTROPHILS # 6.2 10^3/uL (1.5-8.5); NEUTROPHILS % 76.3 % (36.0-66.0); PLATELET COUNT, AUTOMATED 541 10^3/uL (150-450); RED BLOOD COUNT 4.82 10^6/uL (4.00-5.40); WHITE BLOOD COUNT 8.1 10^3/uL (4.0-10.0)
[2021-03-08 12:42] LABS: ALBUMIN 3.1 GM/DL (3.2-5.2); ALT/SGPT 19 U/L (12-78); BILIRUBIN,TOTAL 0.7 MG/DL (0.2-1.0); BLOOD UREA NITROGEN 12 MG/DL (7-18); CALCIUM LEVEL 8.9 MG/DL (8.8-10.2); CARBON DIOXIDE LEVEL 27 MEQ/L (21-32); CHLORIDE LEVEL 102 MEQ/L (98-107); CHOLESTEROL LEVEL 167 MG/DL (<200); CHOLESTEROL RISK RATIO 5.218 (<5); CREATININE FOR GFR 0.67 MG/DL (0.55-1.30); GLOMERULAR FILTRATION RATE > 60.0 (>45); GLUCOSE, FASTING 120 MG/DL (70-100); HDL CHOLESTEROL 32 MG/DL (>40); LDL CHOLESTEROL 110 MG/DL (<100); NON-HDL-C 135 MG/DL; POTASSIUM SERUM 4.8 MEQ/L (3.5-5.1); SODIUM LEVEL 135 MEQ/L (136-145); THYROID STIMULATING HORMONE 0.905 uIU/ML (0.358-3.740); TOTAL PROTEIN 7.2 GM/DL (6.4-8.2); TRIGLYCERIDES LEVEL 125 MG/DL (<150)
== END ==
LOC: M WUC 09:50
PROVIDERS: ATTEND Family Medicine
DX: E11.65 Type 2 diabetes mellitus with hyperglycemia (principal); E78.2 Mixed hyperlipidemia

== ENCOUNTER → 2021-03-31 | Outpatient (REF) | payer BC | LOC: M LAB REF 15:01 | PROVIDERS: ATTEND Physician Assistant | DX: N39.0 Urinary tract infection, site not specified (principal) ==

== ENCOUNTER → 2021-08-14 | Outpatient (CLI) | payer BC | LOC: M WHC 10:46 | PROVIDERS: ATTEND Family Medicine | DX: Z12.31 Encounter for screening mammogram for malignant neoplasm of breast (principal) ==

== ENCOUNTER → 2021-08-22 | Outpatient (CLI) | payer BC ==
[~2021-08-22] MED LIST changes: +E-Z-GAS II EFFERVESCENT PACKET (SODIUM BICARB./CITRIC ACID/SIMETHICONE) As Ordered ONE; +E-Z-HD 98% w/w 340GM SUSP BTL As Ordered ONE; +E-Z-PAQUE 96% w/w SUSP 176GM BTL As Ordered ONE
--- NOTE | 2021-08-22 18:08 | REP ---
INDICATION: GERD. COMPARISON: None TECHNIQUE: This procedure was performed by MEREDITH Orozco, under the direct supervision of Dr. Crow. Images were reviewed with Dr. Crow prior to dictation. Because the patient is status post Sudeep-en-Y surgery liquid barium was given in the erect position as well as in the prone oblique position in order to perform a single contrast upper GI examination. FINDINGS: The keycase assembler film shows no organomegaly or pathological masses. The intestinal gas pattern is unremarkable. The oral and pharyngeal stages of deglutition were unremarkable. There is some minor tertiary contractions seen on today's examination. The esophagus shows somewhat delayed emptying into the gastric remnant. There are no definite strictures or neoplasm seen. The gastric remnant is seen above the diaphragm consistent with a small hiatal hernia. Gastroesophageal reflux was not observed on this examination. The remaining stomach jaffe are normally outlined. There is free flow of contrast through the anastomosis into the small intestine. No stricture or ulcer is visualized. The visualized portion of the proximal small bowel appears normal in course and caliber. IMPRESSION: There is some minor tertiary contractions seen on today's examination. The esophagus shows somewhat delayed emptying into the gastric remnant. There are no definite strictures or neoplasm seen. The gastric remnant is seen above the diaphragm consistent with a small hiatal hernia. Gastroesophageal reflux was not observed on this examination. 0.9 minutes of fluoroscopy time was utilized for this procedure. Some fluoroscopic images are performed with last image hold technology. These images require no additional radiation. <Electronically signed by Monica Steward > 08/22/21 [id number] <Electronically signed by Asael Crow > 08/22/21 [id number]
== END ==
LOC: M RAD 08:12
PROVIDERS: ATTEND Surgery
DX: R13.10 Dysphagia, unspecified (principal)

== ENCOUNTER 2022-05-17 09:40 | Outpatient (CLI) | payer BC ==
[~2022-05-17 09:40] MED LIST changes: -E-Z-GAS II EFFERVESCENT PACKET (SODIUM BICARB./CITRIC ACID/SIMETHICONE) As Ordered ONE; -E-Z-HD 98% w/w 340GM SUSP BTL As Ordered ONE; -E-Z-PAQUE 96% w/w SUSP 176GM BTL As Ordered ONE; +FERRIC CARBOXYMALTOSE INJ 750 MG in NS 250 ML (>50kg) IV ONE
[2022-05-17 10:18] VITALS: BP 151/67
[2022-05-17 11:01] VITALS: BP 125/65
== END 2022-05-17 11:10 | disposition home or self-care (01) ==
LOC: M INFU 09:40
PROVIDERS: ATTEND Family Medicine
DX: D50.9 Iron deficiency anemia, unspecified (principal); Z88.0 Allergy status to penicillin; Z88.8 Allergy status to other drugs, medicaments and biological substances
CPT/HCPCS: 96365; J1439

== ENCOUNTER 2022-05-24 09:05 | Outpatient (CLI) | payer BC ==
[~2022-05-24] VITALS: Ht 165.1 cm; Wt 86.4 kg
[2022-05-24 09:24] VITALS: BP 121/51
[2022-05-24 10:01] VITALS: BP 157/77
[2022-05-24 10:36] VITALS: BP 136/61
== END 2022-05-24 10:35 | disposition home or self-care (01) ==
LOC: M INFU 09:05
PROVIDERS: ATTEND Family Medicine
DX: D50.9 Iron deficiency anemia, unspecified (principal); Z88.0 Allergy status to penicillin; Z88.8 Allergy status to other drugs, medicaments and biological substances
CPT/HCPCS: 96365; J1439

== ENCOUNTER → 2022-09-05 | Outpatient (CLI) | payer BC ==
[~2022-09-05] MED LIST changes: -FERRIC CARBOXYMALTOSE INJ 750 MG in NS 250 ML (>50kg) IV ONE
== END ==
LOC: M WHC 10:33
PROVIDERS: ATTEND Physician Assistant
DX: Z12.31 Encounter for screening mammogram for malignant neoplasm of breast (principal)

== ENCOUNTER → 2023-01-01 | Outpatient (CLI) | payer BC ==
[2023-01-01 16:18] LABS: BASO # 0.1 10^3/uL (0.0-0.2); BASO % 1.6 % (0.0-1.0); EOS # 0.3 10^3/uL (0.0-0.5); EOS % 6.2 % (0.0-3.0); HEMATOCRIT 43.3 % (36.0-47.0); HEMOGLOBIN 14.4 g/dl (12.0-15.5); LYMPH # 1.3 10^3/uL (1.5-5.0); LYMPH % 29.7 % (24.0-44.0); MEAN CORPUSCULAR HEMOGLOBIN 30.9 pg (27.0-33.0); MEAN CORPUSCULAR HGB CONC 33.3 g/dl (32.0-36.5); MEAN CORPUSCULAR VOLUME 92.9 fl (80.0-96.0); MONO # 0.5 10^3/uL (0.0-0.8); MONO % 10.5 % (2.0-8.0); NEUTROPHILS # 2.3 10^3/uL (1.5-8.5); NEUTROPHILS % 51.8 % (36.0-66.0); PLATELET COUNT, AUTOMATED 242 10^3/uL (150-450); RED BLOOD COUNT 4.66 10^6/uL (4.00-5.40); WHITE BLOOD COUNT 4.4 10^3/uL (4.0-10.0)
[2023-01-01 16:27] LABS: INR 1.01; PROTHROMBIN TIME 13.5 SECONDS (12.5-14.5)
[2023-01-01 16:28] LABS: PARTIAL THROMBOPLASTIN TIME 33.6 SECONDS (24.8-34.2)
[2023-01-01 16:38] LABS: HEMOGLOBIN A1c 5.6 % (4.0-6.0)
[2023-01-01 16:44] LABS: TOTAL IRON BINDING CAPACITY 277 UG/DL (250-425)
[2023-01-01 16:45] LABS: ALBUMIN 3.9 G/DL (3.2-5.2); ALKALINE PHOSPHATASE 88 U/L (46-116); ALT/SGPT 14 U/L (7.0-40); AST/SGOT 22 U/L (<34); BILIRUBIN,DIRECT 0.2 MG/DL (<0.4); BILIRUBIN,TOTAL 0.5 MG/DL (0.3-1.2); BLOOD UREA NITROGEN 8 MG/DL (9-23); CALCIUM LEVEL 9.4 MG/DL (8.3-10.6); CARBON DIOXIDE LEVEL 28 MMOL/L (20-31); CHLORIDE LEVEL 109 MMOL/L (98-107); CHOLESTEROL LEVEL 192 MG/DL (<200); CHOLESTEROL RISK RATIO 3.12 (<5); CREATININE FOR GFR 0.78 MG/DL (0.55-1.30); GLOMERULAR FILTRATION RATE > 60.0 (>45); GLUCOSE, FASTING 108 MG/DL (74-106); HDL CHOLESTEROL 61.5 MG/DL (>40); IRON (FE) 90 UG/DL (50-170); LDL CHOLESTEROL 112.7 MG/DL (<100); NON-HDL-C 130.5 MG/DL; PERCENT SATURATION 32.5 % (13.2-45.0); POTASSIUM SERUM 4.2 MMOL/L (3.5-5.1); SODIUM LEVEL 143 MMOL/L (136-145); TOTAL PROTEIN 6.3 G/DL (5.7-8.2); TRIGLYCERIDES LEVEL 89 MG/DL (<150)
[2023-01-01 16:46] LABS: TOTAL 25(OH) VITAMIN D 31.8 NG/ML (20.0-100.0)
[2023-01-01 16:47] LABS: FOLATE 8.76 NG/ML (>5.4); VITAMIN B12 LEVEL 386 PG/ML (211-911)
== END ==
LOC: M WUC 11:11
PROVIDERS: ATTEND Nurse Practitioner Adult Health
DX: Z01.818 Encounter for other preprocedural examination (principal)

== ENCOUNTER → 2023-09-20 | Outpatient (CLI) | payer MEDICARE, OTHER | LOC: M WHC 11:03 | PROVIDERS: ATTEND Nurse Practitioner Adult Health | DX: Z12.31 Encounter for screening mammogram for malignant neoplasm of breast (principal) ==

== ENCOUNTER → 2023-12-13 | Outpatient (CLI) | payer OTHER | LOC: M PLAIMG 08:50 | PROVIDERS: ATTEND Physician Assistant | DX: R01.1 Cardiac murmur, unspecified (principal) ==

== ENCOUNTER 2024-04-02 09:26 | Day surgery (SDC) | payer OTHER ==
[~2024-04-02] VITALS: Ht 170.2 cm; Wt 83.3 kg
[~2024-04-02 09:26] MED LIST changes: +BUPR150T12 PO; +LEXA1TAB2 PO; +SEMA0.257 SQ; +THERTAB52 PO; +VITA100093 PO
[2024-04-02] MEDS: NS 1,000 ML IV ONE (09:57)
[2024-04-02 11:43] VITALS: TEMP 97.6
[2024-04-02 12:00] VITALS: BP 122/58; O2SAT 100
== END 2024-04-02 12:10 | disposition home or self-care (01) ==
LOC: M OPP 09:26
PROVIDERS: ATTEND Surgery
DX: Z86.010 Personal history of colon polyps (principal); D12.6 Benign neoplasm of colon, unspecified; K44.9 Diaphragmatic hernia without obstruction or gangrene; Z98.0 Intestinal bypass and anastomosis status; K30 Functional dyspepsia; Z87.891 Personal history of nicotine dependence; E11.9 Type 2 diabetes mellitus without complications; G47.30 Sleep apnea, unspecified; Z99.89 Dependence on other enabling machines and devices; Z79.1 Long term (current) use of non-steroidal anti-inflammatories (NSAID); Z79.84 Long term (current) use of oral hypoglycemic drugs; Z79.899 Other long term (current) drug therapy; Z88.0 Allergy status to penicillin; Z88.1 Allergy status to other antibiotic agents; Z88.8 Allergy status to other drugs, medicaments and biological substances

== ENCOUNTER → 2024-09-14 | Outpatient (REF) | payer OTHER | LOC: M LAB REF 16:50 | PROVIDERS: ATTEND Nurse Practitioner Adult Health | DX: N39.0 Urinary tract infection, site not specified (principal) ==

== ENCOUNTER → 2024-11-11 | Outpatient (CLI) | payer MEDICARE | LOC: M WHC 11:49 | PROVIDERS: ATTEND Nurse Practitioner Adult Health | DX: Z12.31 Encounter for screening mammogram for malignant neoplasm of breast (principal); R92.323 Mammographic fibroglandular density, bilateral breasts ==

== ENCOUNTER → 2025-08-31 | Outpatient (CLI) | payer MEDICARE | LOC: M RAD 10:56 | PROVIDERS: ATTEND Nurse Practitioner Adult Health | DX: R39.15 Urgency of urination (principal) ==